=== PATIENT | female | born 1955 | race Caucasian/White ===

== ENCOUNTER 2023-12-15 00:55 | Inpatient (IN) | payer MEDICARE, SELFPAY ==
[2023-12-14 21:38] VITALS: BP 139/51; BMI 29.6
[2023-12-14 21:39] VITALS: BP 139/51
[2023-12-14 21:57] LABS: % Basophils 0.5 % (0-2); % Eosinophils 2.1 % (0-6); % Immature Granulocytes 0.2 % (0-0.5); % Lymphocytes 47.6 % (20.5-51.1); % Monocytes 6.7 % (1.7-9.3); % Neutrophils 42.9 % (42.2-75.2); Absolute Eosinophils 0.1 10^3/uL (0-0.7); Absolute Lymphocytes 2.1 10^3/uL (1.2-3.4); Absolute Monocytes 0.3 10^3/uL (0.1-0.6); Absolute Neutrophils 1.9 10^3/uL (1.4-6.5); Hematocrit 24.4 % (37.0-47.0); Hemoglobin 8.9 g/dL (12.0-16.0); Mean Corp Hgb Conc. 36.5 g/dL (33.0-37.0); Mean Corpuscular Hgb 30.7 pg (27.0-31.0); Mean Corpuscular Volume 84.1 fL (81.0-99.0); Mean Platelet Volume 8.9 fL (7.4-10.4); Nucleated Red Blood Cells % 0 %; Platelet Count 248 10^3/uL (130-400); Red Cell Dist. Width 12.5 % (11.5-14.5); White Blood Cell Count 4.3 10^3/uL (4.8-10.8)
[2023-12-14 22:00] VITALS: BP 129/58
[2023-12-14 22:19] LABS: ALT (SGPT) 15 U/L (0-35); AST (SGOT) 26 U/L (14-36); Albumin 4.1 g/dl (3.5-5.0); Alkaline Phosphatase 56 U/L (38-126); Blood Urea Nitrogen 22 mg/dl (7-17); Calcium 9.2 mg/dl (8.4-10.2); Carbon Dioxide 17 mmol/L (22-30); Chloride 98 mmol/L (98-107); Estimated Creatinine Clearance 35 ml/min; Glucose 131 mg/dl (70-99); Potassium 4.5 mmol/L (3.5-5.1); Sodium 127 mmol/L (135-145); Total Bilirubin 0.3 mg/dl (0.2-1.3); Total Protein 6.6 g/dl (6.3-8.2); eGFR 40.98
--- NOTE | 2023-12-14 22:32 | ED.GENMED ---
History of Present Illness
General
Chief Complaint: Weakness
Source: patient and residential records
Exam Limitations: clinical condition (somnulent)
Time Seen by Provider: 12/14/23 22:17
Nursing documentation reviewed up to this point in time: agreed with
History of Present Illness
History of Present Illness:
This a somnolent 68-year-old female from [facility] that presents with increased weakness and fatigue. They noted that her color looks more pale. Patient just arrived at the facility on 8 . She has a history of gastritis. Patient denies any
known black or bloody stools. Patient is on iron for chronic anemia.
Vital signs are stable. Patient not hypoxic
Nursing note reviewed. I agree with nursing documentation up to this point in time.
Home Meds and allergies reviewed.
NUMBER AND COMPLEXITY OF PROBLEMS ADDRESSED AT THE ENCOUNTER
� Chronic conditions affecting care: Chronic anemia, GI bleeds, hypertension, hyperlipidemia
� Acute Exacerbation and/or Progression of Chronic Illness: Anemia
� Differential Diagnosis includes: Dehydration, UTI, acute anemia
AMOUNT AND/OR COMPLEXITY OF DATA TO BE REVIEWED AND ANALYZED
I performed an independent evaluation of the following and my interpretation is:
EKG: EKG shows normal sinus rhythm rate 88 with normal intervals, normal axis. No evidence of acute ischemia present.
CT:
X-rays:
Ultrasound:
Laboratory Studies: Hemoglobin is 8.9. Down from 10.2 on 06/30/2021
Other:
Review of other/old records: Transfer forms from residential reviewed.
Clinical information was obtained by an independent historian:
Prescriptions/Medications Considered but not given:
Further testing considered but not performed:
RISK OF COMPLICATIONS AND/OR MORBIDITY OR MORTALITY OF PATIENT MANAGEMENT
Social determinants of health affecting care: Good Social Support, lives in residential.
Discussion with other providers: Hospitalist for admission.
Escalation of care including admission/observation vs risk of discharge considered:
CRITICAL CARE NOTE:
Total Time (exclusive of procedures):
Update:
Past History
Past History
ED Past Medical History: HTN, Hypercholesterolemia and IDDM
Social History
Tobacco: Non-smoker
Alcohol: None
Personal: Single
Living: other (independent living at [facility])
Review of Systems
Review of Systems
Allergies reviewed?: Yes
Other source history: transfer record
All Other Systems: ROS reviewed and negative except as documented in HPI and ROS
Constitutional: Reports fatigue and sleep disturbance
EENT: Reports no symptoms
Respiratory: Reports no symptoms
Cardiac: Reports no symptoms
ABD/GI: Reports black stools
: Reports no symptoms
Musculoskeletal: Reports no symptoms
Skin: Reports no symptoms
Neurological: Reports no symptoms
Endocrine: Reports no symptoms
Hematologic/Lymphatic: Reports no symptoms
Psychiatric: Reports no symptoms
Phy Exam
General Physical Exam
General Presentation: mild distress
General age: appears stated age
General Skin: warm, dry and pale
General Habitus: elderly and frail
General Mental: other (Somnolent)
General Hydration: dry mucous membranes
ENT Exam
ENT Exam: EOMI, pharynx normal, neck supple and normocephalic
Eye Exam
Eye Exam: PERRL, cornea clear and conjunctiva normal
Cardiovascular Exam
Cardiovascular Exam: regular rate/rhythm, no edema, no murmur and normal peripheral pulses
Pulmonary Exam
Pulmonary Exam: lungs clear, no respiratory distress, no rales, no crackles, no rhonchi, no stridor, no wheezing and no cough
Gastrointestinal Exam
Gastrointestinal Exam: normal bowel sounds, non tender, no organomegaly, no pulsatile mass and no cva tenderness
Rectal Exam: other (Grade 1 sacral decub forming)
Stool: black (Patient is taking supplemental iron)
Guaiac Status: trace positive (Hemoccult is trace positive. Performed in the presence of female nurse)
Neurological Exam
Neurological Exam: alert, oriented x3, no motor deficits and speech normal
Musculoskeletal Exam
Musculoskeletal Exam: full ROM and no edema
Skin Exam
Skin Exam: normal color and warm/dry
Psychiatric Exam
Psychiatric Exam: labile
Course
Orders/Labs/Results
Orders:
Orders
12/14/23 21:37
Cardiac Monitoring- Treatment ONCE
12/14/23 21:50
CMP [Comprehensive Metabolic Panel] Urgent
Complete Blood Count/With Diff Urgent
12/14/23 21:51
EKG [Electrocardiogram (*1)] Urgent
Reason for Study: Fatigue / Weakness
EKG- Treatment ONCE
12/14/23 22:38
0.9% Sodium Chloride 1000 ml [Nss] 1,000 ml IV 500 mls/hr
12/14/23 22:51
Urinalysis Reflex To Culture Urgent
Date Specimen was Collected: 12/14/23
Time Specimen was Collected: 22:44
12/14/23 23:15
Type+Screen Urgent
BBK Wristband Number:
Abnormal Lab Results
12/14/23
21:50
WBC 4.3 L 10^3/uL
(4.8-10.8)
RBC 2.90 L 10^6/uL
(4.20-5.40)
Hgb 8.9 L g/dL
(12.0-16.0)
Hct 24.4 L %
(37.0-47.0)
Sodium 127 L mmol/L
(135-145)
Carbon Dioxide 17 L mmol/L
(22-30)
BUN 22 H mg/dl
(7-17)
Creatinine 1.4 H mg/dL
(0.6-1.0)
Glucose 131 H mg/dl
(70-99)
12/14/23 21:50
12/14/23 21:50
Vital Signs
Initial and Last Documented VS:
Initial Vital Signs
Temp Pulse Resp BP Pulse Ox
97.7 F 93 12 139/51 100
12/14/23 21:38 12/14/23 21:38 12/14/23 21:38 12/14/23 21:38 12/14/23 21:38
Last Documented Vital Signs
Temp Pulse Resp BP Pulse Ox
97.7 F 89 13 139/51 98
12/14/23 21:38 12/14/23 21:45 12/14/23 21:45 12/14/23 21:39 12/14/23 21:54
*Critical Care Note
Total Time (30-74mins, 75-104mins- exclusive of procedures): Not Applicable
ED Attending Note
-
Portions of this chart may have been created with voice recognition software.� Occasional wrong word or��sound alike� substitutions may have occurred due to the inherent limitations of voice recognition software.
Discharge Plan
Departure
Patient Disposition: Admit
Date of Disposition: 12/14/23
Time of Disposition: 23:38
Admit to: Telemetry
Presentation/result/management discussed w/ accepting MD/DO: Hospitalist
Condition: Good
Discharge Problem:
Generalized weakness, Acute hyponatremia, Acute renal insufficiency, Anemia, Acute GI bleeding
Prescriptions:
No Action
nifedipine 30 mg Tablet Extended Release 24hr
30 mg PO DAILY
hydralazine 10 mg Tablet
10 mg PO TID
polyethylene glycol 3350 [Miralax] 17 gram Powder In Packet
34 g PO HS
sennosides-docusate sodium [Senokot-S] 8.6-50 mg Tablet
1 tab-cap PO HS
aspirin 81 mg Tablet,Delayed Release (Dr/Ec)
81 mg PO MOWEFR
acetaminophen 500 mg Tablet
1,000 mg PO Q8HPRN PRN (Reason: mild pain/fever)
magnesium hydroxide [Milk of Magnesia] 400 mg/5 mL Suspension
30 ml PO DAILYPRN PRN (Reason: constipation)
pantoprazole 40 mg tablet,delayed release (DR/EC)
40 mg PO DAILY
ferrous sulfate 325 mg (65 mg iron) Tablet
325 mg PO BID
Fleet Enema 19-7 gram/118 mL Enema
118 ml OK [id number] PRN (Reason: constipation)
bisacodyl [Dulcolax (bisacodyl)] 5 mg Tablet,Delayed Release (Dr/Ec)
5 mg PO [id number] PRN (Reason: constipation)
gabapentin 100 mg Capsule
100 mg PO BID
gabapentin 100 mg Capsule
200 mg PO HS
metformin 500 mg Tablet Extended Release 24 Hr
1,000 mg PO BID
insulin lispro [Humalog KwikPen Insulin] 100 unit/mL Insulin Pen
2 - 14 sliding scale dose SC AC
Patient Comments:
12/14/2023: if 150-200= 2; 201-250= 4; 251-300= 6; 301-350= 8; 351-400= 10; 450-451= 14
ezetimibe 10 mg tablet
10 mg PO DAILY
brimonidine-timolol [Combigan] 0.2-0.5 % Drops
1 drp RIGHT EYE BID
cholecalciferol (vitamin D3) 1,250 mcg (50,000 unit) Tablet
1,250 mcg PO QMONTH
Mounjaro 5 mg/0.5 mL Pen Injector
5 mg SC MO
Benefiber (wheat dextrin)
2 tsp PO BID
Referrals:
Anna Jackson CRNP [Family Provider] -
Interventions
Interventions:
*Risk Screen - Suicide Last Done: 12/14/23 21:38
*General Assessment Last Done: 12/14/23 21:38
*Neglect/Abuse Screening Last Done: 12/14/23 21:38
ED- Fall Risk Assessment Last Done: 12/14/23 21:54
*ED COVID-19 Vaccine History Last Done: 12/14/23 21:38
ED- Cardiac Assessment Last Done: 12/14/23 21:54
ED- Neurological Assessment Last Done: 12/14/23 21:54
ED- Pulmonary Assessment Last Done: 12/14/23 21:54
Discharge Date and Time
Print Language: ITALIAN
[2023-12-14] MEDS: NSS 1000 IV (22:55)
[2023-12-14 23:00] VITALS: BP 140/59
[2023-12-14 23:12] LABS: Urine Albumin Negative (Neg - Trace); Urine Bilirubin Negative (Negative); Urine Character Clear (Clear); Urine Color Yellow; Urine Glucose Negative (Negative); Urine Ketone Negative (Negative); Urine Leukocyte Negative (Negative); Urine Nitrite Negative (Negative); Urine Occult Blood Negative (Negative); Urine Urobilinogen Negative (Neg - 1+)
[2023-12-15] VITALS (11 sets, daily range): BP systolic 109–165; BP diastolic 58–86; PULSE 87–121; BMI 28.3
--- NOTE | 2023-12-15 00:04 | HPS.HSE ---
Family Physician
-
Family Physician: Anna Jackson
Chief Complaint
-
weakness
History of Present Illness
68F recently admitted [facility] as of 12/10/23 on ASA, HX gastritis, HX IrDMT2, Neuropathy, chronic anemia on oral Fe therapy , HTN seen at ER for evaluation of weakness and fatigue. Facility noted pale complexion.
ROS:
Denied N/V
Denied any change of colored stool
Medical History
Past Medical History
Past Medical History: Reports HTN, Hypercholesterolemia and IDDM
Additional Past Medical History:
gastritis
Past Surgical History: Reports Other (NA )
Social History
Tobacco: Non-smoker
Alcohol: None
Personal: Single
Living: [facility] (indepedent living )
Family History
Family History: Not pertinent
Allergies / Home Medications
Allergies reflects when Allergies were last updated in [facility].
Home Medications with original date entered in [facility]
Allergy/Medication List:
Allergies
Allergy/AdvReac Type Severity Reaction Status Date / Time
simvastatin [From Zocor] Allergy Mild Unknown Verified 12/14/23 21:45
Home Medications
Benefiber (wheat dextrin) 2 tsp PO BID 12/14/23
acetaminophen 500 mg tablet 1,000 mg PO Q8HPRN PRN mild pain/fever 12/14/23
aspirin 81 mg tablet,delayed release 81 mg PO MOWEFR 12/14/23
bisacodyl 5 mg tablet,delayed release (Dulcolax (bisacodyl)) 5 mg PO [id number] PRN constipation 12/14/23
brimonidine 0.2 %-timolol 0.5 % eye drops (Combigan) 1 drp RIGHT EYE BID 12/14/23
cholecalciferol (vitamin D3) 1,250 mcg (50,000 unit) tablet 1,250 mcg PO QMONTH 12/14/23
ezetimibe 10 mg tablet 10 mg PO DAILY 12/14/23
ferrous sulfate 325 mg (65 mg iron) tablet 325 mg PO BID 12/14/23
gabapentin 100 mg capsule 100 mg PO BID 12/14/23
gabapentin 100 mg capsule 200 mg PO HS 12/14/23
hydralazine 10 mg tablet 10 mg PO TID 12/14/23
insulin lispro 100 unit/mL subcutaneous pen (Humalog KwikPen (U-100) Insulin) 2 - 14 sliding scale dose SC AC 12/14/23
magnesium hydroxide 400 mg/5 mL oral suspension (Milk of Magnesia) 30 ml PO DAILYPRN PRN constipation 12/14/23
metformin 500 mg tablet,extended release 24 hr 1,000 mg PO BID 12/14/23
nifedipine 30 mg tablet,extended release 24 hr 30 mg PO DAILY 12/14/23
pantoprazole 40 mg tablet,delayed release 40 mg PO DAILY 12/14/23
polyethylene glycol 3350 17 gram oral powder packet (Miralax) 34 g PO HS 12/14/23
sennosides 8.6 mg-docusate sodium 50 mg tablet (Senokot-S) 1 tab-cap PO HS 12/14/23
sodium phosphates 19 gram-7 gram/118 mL enema (Fleet Enema) 118 ml RI [id number] PRN constipation 12/14/23
tirzepatide 5 mg/0.5 mL subcutaneous pen injector (Mounjaro) 5 mg SC MO 12/14/23
Review of Systems
-
Constitutional: Reports Fatigue
EENT: Reports No Symptoms
Respiratory: Reports No Symptoms
Cardiac: Reports No Symptoms
Abdomen/GI: Denies Abdominal Pain
: Reports No Symptoms
Musculoskeletal: Reports No Symptoms
Skin: Reports No Symptoms
Neurological: Reports No Symptoms
Endocrine: Reports No Symptoms
Hematologic/Lymphatic: Reports No Symptoms
Psych: Reports No Symptoms
Physical Exam
Vital Signs
Vital Signs
Temp Pulse Resp BP Pulse Ox
97.7 F 89 13 139/51 98
12/14/23 21:38 12/14/23 21:45 12/14/23 21:45 12/14/23 21:39 12/14/23 21:54
Physical Exam
General: Well Developed, Well Nourished, No Apparent Distress and Other (pale complexion )
HEENT: NormoCephalic, Anicteric, Moist mucous membranes and Atraumatic
Respiratory: Clear
Cardiac: S1/S2 and Regular Rhythm; No Murmur or Rub
GI: Soft, Non Tender, Non Distended and Normal Bowel Sounds; No Organomegaly
Rectal: Hem Positive and Deferred by Provider
Musculoskeletal: No Clubbing, No Cyanosis and No Edema
Skin: No Rash
Neuro: Nonfocal/grossly intact
Laboratory Results
-
12/14/23 21:50
12/14/23 21:50
Laboratory Results
Total Bilirubin 0.3 mg/dl (0.2-1.3) 12/14/23 21:50
AST 26 U/L (14-36) 12/14/23 21:50
ALT 15 U/L (0-35) 12/14/23 21:50
Alkaline Phosphatase 56 U/L (38-126) 12/14/23 21:50
Data Reviewed
-
Lab Data: Labs Reviewed by me
Impression/Plan
-
Reviewed VS: hemodynamically stable
Data
WCC 4.3
Hgb 8.9 - was 10.2 ( 06/30/21)
Na 127
CO2 17
BUN 22
Cr 1.4 -was 0.8 on 06/30/21
eGFR 40
EKG report
NORMAL SINUS RHYTHM
INFERIOR INFARCT , AGE UNDETERMINED
ANTERIOR INFARCT , AGE UNDETERMINED
ABNORMAL ECG
NO PREVIOUS ECGS AVAILABLE
03/12/17 ECHO
Normal biventricular size and systolic function without regional wall motion
abnormality.
Focal aortic valve sclerosis without stenosis.
No prior study available for comparison.
No prior hospitalist admission:
ASSESSMENT & PLAN
Trace HoB POS stool acute GIB per ER attd
Worsening chronic anemia become symptomatic
Suspect ACBL anemia with generalized weakness
- Held ASA
- T & S
- Blood consented
- PPI gtt
- trend H & H
- GI consult
SULAIMAN suspect pre renal origin due to GIB loss
- IVF
- Trend Cr
Hyponatremia suspect hypovolemia
Normotensive
- Gentle IV NS and trend Na
- check Ur Na, Ur Osm
Essential HTN
- Held Nifedipine for now
- Observe BP
IrDMT2
- Held Metformin
- add ISS low
Diabetic neuropathy
- cont. LEAD APPLIER Gabapentin
DVT Px: SCD
Code: Full
IP TLM
[2023-12-15] MEDS: PROTONIX IV 40 MG IV (00:19)
[2023-12-15 00:50] LABS: Osmolality Urine 157 mOsm/kg (300-900)
[2023-12-15 01:07] LABS: Urine Sodium 23 mmol/L (30-90)
--- NOTE | 2023-12-15 02:30 | PTCARENOTE ---
Pt arrived to room 416-01. Pt AAOx3, VSS. Pt in no signs of acute distress, respirations regular. Pt oriented to room, call avelar placed within reach.
[2023-12-15 02:32] LABS: Glucose - Point of Care 247 mg/dl (70-99)
[2023-12-15] MEDS: PROTONIX 100 IV ×2 (02:44→11:41)
[2023-12-15 06:33] LABS: Glucose - Point of Care 179 mg/dl (70-99)
--- NOTE | 2023-12-15 06:59 | CON.GI ---
Addendum entered and electronically signed by Khadra Houston MD 12/15/23 12:06:
I saw and examined the patient.
The RUBBER STAMP DIE INSPECTOR or PA's note was reviewed and I agree with the note.
Comment: 68-year-old female with history of hypertension, high cholesterol, diabetes presenting from [facility] with fatigue, lethargy, noted to have a hemoglobin of 8.9 and heme positive stool without overt bleeding. Patient is a poor historian
but denies any GI complaints. Denies abdominal pain, nausea or vomiting. No heartburn or trouble swallowing. Reports constipation and takes MiraLAX with improvement in constipation. No blood in the stool or black stool that she reports. She did
report losing weight, cannot quantify but has been stable recently. No regular NSAID use. Denies any previous endoscopy or colonoscopy. Father with questionable history of rectal cancer. On review of records, there is reported history of
gastritis needing hospital admission but again not sure which hospital.
-Anemia and heme positive stool
Rule out esophagitis, gastritis, ulcer disease, colon polyp versus other.
Agree with checking iron studies, B12 and folate levels and also celiac panel.
Plan for upper endoscopy and colonoscopy tomorrow.
Monitor electrolytes and replete if needed.
Addendum entered and electronically signed by MOON Gonzalez 12/15/23 10:49:
reviewed with Dr. Houston with anemia and weakness plan for EGD/colon in AM. pt agreeable to proceed
Original Note:
Consultation
-
Date/Time Consultation Requested: 12/15/23209
Date/Time Consultation Performed: 12/15/23729
Requesting Provider: Miles Chand MD
Performing Provider: MOON Carter, Khadra Houston MD
Reason for Consultation: anemia
Medical History
Chief Complaint / HPI
Chief Complaint: weakness
History of Present Illness:
Pt is a 68yo with hx IDDM with neuropathy, HTN, hypercholesterolemia, murmur, cellulitis of toe with prior surgery and chronic anemia. Per SNF she is noted with recent admission with gastritis ? [facility]. She now presents with
weakness, lethargy and recent fall with hbg 8.9 with trace heme + stool black stool with iron use in ER and asked to evaluate. Prior hbg 10.2 in 2021. Pt admits to hx anemia with chronic oral iron use. She admits to some darker stools which is
chronic with iron use. She also admits to recent fall with weakness and some forgetfulness. She denies hx GI work up with EGD or colonoscopy in past. She is ASA 3 times per week but no other NSAID use.
She admits to hx constipation with Miralax use and wt loss over several years but denies dysphagia, GERD, nausea, vomiting, abdominal pain, diarrhea or visible blood or black in stools. She denies bruising with recent fall, urinary bleeding or
vaginal bleeding. Pt also noted with tachycardia after admission and Na 127, creat 1.4.
Past Medical History
Past Medical History: HTN, Hypercholesterolemia, IDDM (with diabetic neuropathy) and Other (cellulitis toe, gastritis, anemia , murmur, obesity )
Past Surgical History: Other (toe surgery at [facility])
Social History
Tobacco: Non-Smoker
Alcohol: None
Drug: None
Living: Prison
Employment: Retired
Family History
Family History: Other (mother with hx aneurysm father with hx cancer pt did not recall hx any GI cancers )
Allergies / Home Medications
Allergy/AdvReac Type Severity Reaction Status Date / Time
simvastatin [From Zocor] Allergy Mild Unknown Verified 12/14/23 21:45
�Medication �Instructions �Recorded
Benefiber (wheat dextrin) 2 tsp PO BID 12/14/23
acetaminophen 500 mg tablet 1,000 mg PO Q8HPRN PRN mild 12/14/23
pain/fever
aspirin 81 mg tablet,delayed 81 mg PO MOWEFR 12/14/23
release
bisacodyl 5 mg tablet,delayed 5 mg PO [id number] PRN constipation 12/14/23
release (Dulcolax (bisacodyl))
brimonidine 0.2 %-timolol 0.5 % 1 drp RIGHT EYE BID 12/14/23
eye drops (Combigan)
cholecalciferol (vitamin D3) 1,250 1,250 mcg PO QMONTH 12/14/23
mcg (50,000 unit) tablet
ezetimibe 10 mg tablet 10 mg PO DAILY 12/14/23
ferrous sulfate 325 mg (65 mg 325 mg PO BID 12/14/23
iron) tablet
gabapentin 100 mg capsule 100 mg PO BID 12/14/23
gabapentin 100 mg capsule 200 mg PO HS 12/14/23
hydralazine 10 mg tablet 10 mg PO TID 12/14/23
insulin lispro 100 unit/mL 2 - 14 sliding scale dose SC AC 12/14/23
subcutaneous pen (Humalog KwikPen
(U-100) Insulin)
magnesium hydroxide 400 mg/5 mL 30 ml PO DAILYPRN PRN constipation 12/14/23
oral suspension (Milk of Magnesia)
metformin 500 mg tablet,extended 1,000 mg PO BID 12/14/23
release 24 hr
nifedipine 30 mg tablet,extended 30 mg PO DAILY 12/14/23
release 24 hr
pantoprazole 40 mg tablet,delayed 40 mg PO DAILY 12/14/23
release
polyethylene glycol 3350 17 gram 34 g PO HS 12/14/23
oral powder packet (Miralax)
sennosides 8.6 mg-docusate sodium 1 tab-cap PO HS 12/14/23
50 mg tablet (Senokot-S)
sodium phosphates 19 gram-7 118 ml MD [id number] PRN constipation 12/14/23
gram/118 mL enema (Fleet Enema)
tirzepatide 5 mg/0.5 mL 5 mg SC MO 12/14/23
subcutaneous pen injector
(Mounjaro)
Review of Systems
-
Unable to obtain full review of systems at this time due to: Other (some forgetfulness to history )
History Source: Patient
Constitutional: Reports Weight Loss (over time )
EENT: Reports No Symptoms
Respiratory: Reports No Symptoms
Cardiac: Reports No Symptoms
Abdomen/GI: Reports Constipated and Other (darker stools with iron use )
: Reports No Symptoms
Musculoskeletal: Reports No Symptoms
Skin: Reports No Symptoms
Neurological: Reports Weakness
Endocrine: Reports No Symptoms
Hematologic/Lymphatic: Reports No Symptoms
Vital Signs
Temp Pulse Resp BP Pulse Ox
97.6 F 104 18 165/77 99
12/15/23 02:35 12/15/23 02:03 12/15/23 02:35 12/15/23 02:03 12/15/23 02:35
Physical Exam
Exam
General: Other (pale appearing )
HEENT: Normocephalic and Anicteric
Respiratory: Clear
Cardiac: Other (tachy)
GI: Soft, Non Tender and Non Distended
Rectal: Hem Positive (black heme + in ER with hx iron use )
Musculoskeletal: No Clubbing, No Cyanosis and Other (no bruising noted with recent fall )
Skin: Warm and Dry
Neuro: Awake, Alert and AO x 3
Psych: Calm
Results
WBC 4.3 10^3/uL (4.8-10.8) L 12/14/23 21:50
Hgb Cancelled 12/15/23 18:11
Hct Cancelled 12/15/23 18:11
MCV 84.1 fL (81.0-99.0) 12/14/23 21:50
Plt Count 248 10^3/uL (130-400) 12/14/23 21:50
Absolute Neuts (auto) 1.9 10^3/uL (1.4-6.5) 12/14/23 21:50
Sodium 127 mmol/L (135-145) L 12/14/23 21:50
Potassium 4.5 mmol/L (3.5-5.1) 12/14/23 21:50
Chloride 98 mmol/L (98-107) 12/14/23 21:50
Carbon Dioxide 17 mmol/L (22-30) L 12/14/23 21:50
BUN 22 mg/dl (7-17) H 12/14/23 21:50
Creatinine 1.4 mg/dL (0.6-1.0) H 12/14/23 21:50
Calcium 9.2 mg/dl (8.4-10.2) 12/14/23 21:50
Total Bilirubin 0.3 mg/dl (0.2-1.3) 12/14/23 21:50
AST 26 U/L (14-36) 12/14/23 21:50
ALT 15 U/L (0-35) 12/14/23 21:50
Alkaline Phosphatase 56 U/L (38-126) 12/14/23 21:50
Diagnostic Image Results:
Prior GI Procedures:
EGD: none
Colonoscopy: none
Assessment / Plan
-
Pt is a 68yo with hx IDDM with neuropathy, HTN, hypercholesterolemia, murmur cellulitis of toe with prior surgery and chronic anemia. Per notes from [facility] recent admission with gastritis at [facility]. She now presents with weakness,
lethargy, and recent fall with hbg 8.9 with trace heme + stool black stool with iron use in ER and asked to evaluate. Prior hbg 10.2 in 2021. Pt admits to hx anemia with chronic oral iron use. She admits to some darker stools which is chronic
with iron use. She also admits to recent fall with weakness and some forgetfulness. She denies hx GI work up with EGD or colonoscopy in past. She is ASA 3 times per week but no other NSAID use.
-weakness/lethargy
-normocytic anemia with hx chronic anemia
-recent gastritis
-trace heme + stool in ER
-tachycardia with ambulation
-hyponatremia
-increased creat on admission
-hx fall - no bruising noted
other medical problems:
-IDDM with neuropathy
-HTN
-hypercholesterolemia
-hx cellulitis toe with prior toe surgery
PLAN:
etiology of anemia related to chronic disease with chronic iron use, vs underlying GI issue with trace heme + stool in ER vs other
trend hbg -- AM hbg pending
add iron studies, B12, folate
cont PPI gtt with recent gastritis and anemia
discussed GI testing with EGD and colonoscopy-- pt unsure if she would want to proceed. She denies for me to call family or friend to review
she is noted with tachycardia with HR up to 130's with ambulation this am --work up per medical team for tachycardia though seems improved
ok for clear diet
will review with Dr. Houston for IP vs OP testing as no transfusion required
will try to obtain records with ? recent admission to [facility] with gastritis
-
-
Thank you for consultation and allowing me to participate in the patient's care. Please call the sap security consultant GI physician during the after hours with any questions or concerns.
--- NOTE | 2023-12-15 10:36 | W.PN.HOSP.TC ---
Today's Communication/Plan
-
see bold
Assessment / Plan
Assessment / Plan
Gen: NAD, Awake and alert
Eyes: EOMI, PERRLA, no scleral icterus.
Neck: supple.
CV: tachy, reg rhythm, +S1/S2, 2/6 systolic murmru
Resp: CTAB, no rales, wheezes, or rhonchi.
Abd: +BS, soft, NT, ND
Skin: No rashes.
Neuro: CN 2-12 intact, non-focal.
Psych: Normal mood and affect.
Acute blood loss anemia:
-HEME POS stool
-ASA on hold
-cont PPI gtt
-trend Hb
-GI following
-for EGD
SULAIMAN and hypovolemic hyponatremia:
-likely prerenal and due to acute GIB
-trend Na/Cr with IVFs
Other problems:
Essential HTN: Holding Hydralazine/Procardia
DM2 with diabetic neuropathy: SSI/accuchecks
FULL/SCDs
Anticipated Discharge: 24 - 48 hours
Subjective/Interval History
-
Date of Service: December 15, 2023
Denies CP/SOB.
Objective Data
-
Labs:
Laboratory Results
12/15/23 12/15/23 12/15/23
02:11 06:00 10:11
Hgb Cancelled Pending Cancelled
Hct Cancelled Pending Cancelled
PT Pending
INR Pending
Sodium Pending
Potassium Pending
Chloride Pending
Carbon Dioxide Pending
BUN Pending
Creatinine Pending
Glucose Pending
Calcium Pending
Total Bilirubin Pending
AST Pending
ALT Pending
Alkaline Phosphatase Pending
12/15/23 12/15/2324
14:00 18:11 22:00
Hgb Pending Cancelled Pending
Hct Pending Cancelled Pending
PT
INR
Sodium
Potassium
Chloride
Carbon Dioxide
BUN
Creatinine
Glucose
Calcium
Total Bilirubin
AST
ALT
Alkaline Phosphatase
Vital Signs:
Vital Signs
Temp Pulse Resp BP Pulse Ox
97.9 F 101 20 141/73 99
12/15/23 07:20 12/15/23 07:20 12/15/23 07:20 12/15/23 07:20 12/15/23 07:20
[2023-12-15 11:38] LABS: Hematocrit 25.2 % (37.0-47.0); Hemoglobin 9.2 g/dL (12.0-16.0)
[2023-12-15] MEDS: NOVOLOG FLEXPEN-LOW RESISTANCE 1 UNITS SC ×2 (11:41→19:07)
[2023-12-15] MEDS: COMBIGAN EYE DROPS 1 DROP RIGHT EYE ×2 (11:41→20:21)
[2023-12-15 11:46] LABS: INR 0.94; PT 12.6 Sec (11.4-14.6)
[2023-12-15 11:47] LABS: Glucose - Point of Care 217 mg/dl (70-99)
[2023-12-15 12:19] LABS: ALT (SGPT) 15 U/L (0-35); AST (SGOT) 23 U/L (14-36); Albumin 4.1 g/dl (3.5-5.0); Alkaline Phosphatase 67 U/L (38-126); Blood Urea Nitrogen 21 mg/dl (7-17); Calcium 9.4 mg/dl (8.4-10.2); Carbon Dioxide 18 mmol/L (22-30); Chloride 105 mmol/L (98-107); Estimated Creatinine Clearance 34 ml/min; Glucose 215 mg/dl (70-99); Iron 64 ug/dl (37-170); Potassium 4.7 mmol/L (3.5-5.1); Sodium 136 mmol/L (135-145); Total Bilirubin 0.3 mg/dl (0.2-1.3); Total Protein 6.5 g/dl (6.3-8.2); eGFR 40.98
[2023-12-15 12:33] LABS: Percent Saturation 30 % (20-50); Total Iron Binding Capacity 212 ug/dl (265-497)
[2023-12-15 13:06] LABS: Glycohemoglobin (HgbA1c) 6.2 % (4.0-5.6)
[2023-12-15] MEDS: NOVOLOG FLEXPEN-LOW RESISTANCE 2 UNITS SC (13:17)
[2023-12-15 13:23] LABS: Folate 13.8 ng/ml (2.76-20); Vitamin B12 469 pg/ml (239-931)
--- NOTE | 2023-12-15 13:30 | CM ---
Patient seen bedside, initial assessment completed. Patient resides at [facility]. Patient reports she has a cane and and walker for ambulation, has received home therapy in the past, denies SNF. Patient inquiring what Hospital she is
in, GEORGI explained patient is at [facility]. Patient PCP Anna Jackson, pharmacy [facility] in [place], confirms prescription coverage. CM received consult for advance directive, paperwork provided to patient.
CM spoke with Mignon ([phone]), [facility] Lead for [facility] at [facility]. Per Mignon, patient has been in and out of the hospital, most recently at [facility]. Per Mignon, patient is typically alert and oriented, recently has
been showing decreased responsiveness. Mignon reports patient is able to ambulate with a cane, transfers and toilets independently. Patient receives 100% assistance with medication management assistance with showers to keep patient on a schedule.
CM will continue to follow for all discharge planning needs.
Plan; return to [facility], watch for possible VN needs.
[2023-12-15] MEDS: MIRALAX 34 GRAMS PO (14:02)
[2023-12-15] MEDS: NSS 1000 IV (16:39)
[2023-12-15] MEDS: NULYTELY SOLUTION 4 LITERS PO (18:24)
[2023-12-15 18:46] LABS: Glucose - Point of Care 176 mg/dl (70-99)
[2023-12-15 20:37] LABS: Hematocrit 27.8 % (37.0-47.0); Hemoglobin 10.3 g/dL (12.0-16.0)
[2023-12-15 21:23] LABS: Glucose - Point of Care 157 mg/dl (70-99)
[2023-12-16] MEDS: PROTONIX 100 IV ×3 (00:06→23:02)
[2023-12-16 03:18] VITALS: BP 142/60
[2023-12-16 04:18] LABS: Hemoglobin 9.2 g/dL (12.0-16.0); Mean Corp Hgb Conc. 36.8 g/dL (33.0-37.0); Mean Corpuscular Hgb 30.1 pg (27.0-31.0); Mean Corpuscular Volume 81.7 fL (81.0-99.0); Mean Platelet Volume 8.7 fL (7.4-10.4); Platelet Count 278 10^3/uL (130-400); Red Blood Cell Count 3.06 10^6/uL (4.20-5.40); Red Cell Dist. Width 12.9 % (11.5-14.5); White Blood Cell Count 4.8 10^3/uL (4.8-10.8)
[2023-12-16 04:44] LABS: IgA 238 mg/dl (70-400)
[2023-12-16 07:00] VITALS: BP 181/98
--- NOTE | 2023-12-16 07:09 | W.PN.HOSP.TC ---
Today's Communication/Plan
-
see bold
Assessment / Plan
Assessment / Plan
Gen: remains NAD, Awake and alert
Eyes: EOMI, PERRLA, no scleral icterus.
Neck: supple.
CV: remains RRR, +S1/S2, 2/6 systolic murmur
Resp: CTAB, no rales, wheezes, or rhonchi.
Abd: +BS, soft, NT, ND
Skin: No rashes.
Neuro: CN 2-12 intact, non-focal.
Psych: Normal mood and affect.
Acute blood loss anemia:
-HEME POS stool
-ASA on hold
-cont PPI gtt
-Hb stable
-GI following
-for EGD/colonoscopy
SULAIMAN and hypovolemic hyponatremia:
-likely prerenal and due to acute GIB
-hyponatremia has resolved
-cont IVFs, trend Cr
Other problems:
Essential HTN: Holding Hydralazine/Procardia
DM2 with diabetic neuropathy: SSI/accuchecks
FULL/SCDs
Anticipated Discharge: 24 - 48 hours
Subjective/Interval History
-
Date of Service: December 16, 2023
Objective Data
-
Labs:
Laboratory Results
12/15/23 12/15/23 12/16/23
20:02 22:00 03:54
WBC 4.8
Hgb 10.3 L Cancelled 9.2 L
Hct 27.8 L Cancelled
Plt Count
12/16/23 12/16/23
03:54 03:54
WBC
Hgb Cancelled
Hct 25.0 L Cancelled
Plt Count 278
Vital Signs:
Vital Signs
Temp Pulse Resp BP Pulse Ox
97.9 F 92 18 142/60 99
12/16/23 03:18 12/16/23 03:18 12/16/23 03:18 12/16/23 03:18 12/16/23 03:18
I&O
12/15/23 12/16/23 12/17/23
06:59 06:59 06:59
Intake Total 750 / 750
Balance 750 / 750
[2023-12-16 09:21] LABS: Glucose - Point of Care 139 mg/dl (70-99)
[2023-12-16] MEDS: NOVOLOG FLEXPEN-LOW RESISTANCE SC (09:25)
[2023-12-16] MEDS: COMBIGAN EYE DROPS 1 DROP RIGHT EYE ×2 (09:26→20:08)
[2023-12-16] MEDS: NSS 1000 IV (10:38)
[2023-12-16] MEDS: GAVILAX 125 GM PO (10:51)
[2023-12-16 11:00] VITALS: BP 158/71
[2023-12-16 12:06] LABS: Glucose - Point of Care 222 mg/dl (70-99)
[2023-12-16] MEDS: NSS IV (13:05)
[2023-12-16] MEDS: NOVOLOG FLEXPEN-LOW RESISTANCE 2 UNITS SC (13:20)
--- NOTE | 2023-12-16 14:34 | CM ---
Patient seen bedside, reports no needs at this time. Patient for EGD/colonoscopy. CM will continue to follow for all discharge planning needs.
Plan; return to [facility] when stable.
[2023-12-16 15:00] VITALS: BP 171/96
--- NOTE | 2023-12-16 16:28 | W.PN.GI.CBS2 ---
Today's Communication / Plan
-
For EGD and colon tomorrow
Assessment / Plan
-
Pt is a 68yo with hx IDDM with neuropathy, HTN, hypercholesterolemia, murmur cellulitis of toe with prior surgery and chronic anemia. Per notes from SNF recent admission with gastritis at [facility]. She now presents with weakness,
lethargy, and recent fall with hbg 8.9 with trace heme + stool black stool with iron use in ER and asked to evaluate. Prior hbg 10.2 in 2021. Pt admits to hx anemia with chronic oral iron use. She admits to some darker stools which is chronic
with iron use. She also admits to recent fall with weakness and some forgetfulness. She denies hx GI work up with EGD or colonoscopy in past. She is ASA 3 times per week but no other NSAID use.
-weakness/lethargy
-normocytic anemia with hx chronic anemia
-recent gastritis
-trace heme + stool in ER
-tachycardia with ambulation
-hyponatremia
-increased creat on admission
-hx fall - no bruising noted
other medical problems:
-IDDM with neuropathy
-HTN
-hypercholesterolemia
-hx cellulitis toe with prior toe surgery
PLAN:
etiology of anemia related to chronic disease with chronic iron use, vs underlying GI issue with trace heme + stool in ER vs other
Supposed to get upper endoscopy and colonoscopy today but prep was not clear and procedure postponed to tomorrow.
Giving more MiraLAX prep this evening.
Protonix 40 mg IV twice daily with recent gastritis and anemia
Subjective
Subjective
Date of Service: December 16, 2023
Patient without any complaints
Objective
Data Reviewed
Laboratory Data:
Laboratory Results
12/16/23 03:54
12/15/23 11:25
Laboratory Results
PT 12.6 Sec (11.4-14.6) 12/15/23 11:25
INR 0.94 12/15/23 11:25
Total Bilirubin 0.3 mg/dl (0.2-1.3) 12/15/23 11:25
AST 23 U/L (14-36) 12/15/23 11:25
ALT 15 U/L (0-35) 12/15/23 11:25
Alkaline Phosphatase 67 U/L (38-126) 12/15/23 11:25
Vital Signs and I&O:
Vital Signs
Temp Pulse Resp BP Pulse Ox
97.9 F 88 18 171/96 100
12/16/23 15:00 12/16/23 15:00 12/16/23 15:00 12/16/23 15:00 12/16/23 15:00
I&O
12/15/23 12/16/23 12/17/23
06:59 06:59 06:59
Intake Total 750 / 750
Balance 750 / 750
Physical Exam
Physical Exam
GI: Soft, Non Distended and Non Tender
[2023-12-16 17:23] LABS: Glucose - Point of Care 150 mg/dl (70-99)
[2023-12-16] MEDS: NOVOLOG FLEXPEN-LOW RESISTANCE 1 UNITS SC (17:27)
[2023-12-16] MEDS: GAVILAX 238 GM PO (17:28)
[2023-12-16 19:41] VITALS: BP 183/88
[2023-12-16 21:09] LABS: Glucose - Point of Care 257 mg/dl (70-99)
[2023-12-16 23:02] VITALS: BP 125/56
[2023-12-17] VITALS (8 sets, daily range): BP systolic 142–173; BP diastolic 64–92
[2023-12-17] MEDS: NSS 1000 IV (03:10)
[2023-12-17 06:22] LABS: Glucose - Point of Care 160 mg/dl (70-99)
[2023-12-17] MEDS: NOVOLOG FLEXPEN-LOW RESISTANCE 1 UNITS SC ×2 (06:23→14:07)
--- NOTE | 2023-12-17 06:42 | PTCARENOTE ---
Pt's stool is still liquid but light brown, not clear. Pt drank half of Miralax bowel prep and is refusing to drink any more. House MOLASSES PREPARER Janet Marquez notified, order for 1x tap water enema ordered. Pt educated by this RN on the use of the enema to
eliminate stool left in her rectum; pt is refusing and stated 'I don't think it helped before. No, sorry, I don't want that.' Will pass along to day shift RN.
[2023-12-17] MEDS: COMBIGAN EYE DROPS 1 DROP RIGHT EYE ×2 (08:31→20:11)
[2023-12-17 09:28] LABS: Hemoglobin 9.2 g/dL (12.0-16.0); Mean Corp Hgb Conc. 35.4 g/dL (33.0-37.0); Mean Corpuscular Hgb 29.5 pg (27.0-31.0); Mean Corpuscular Volume 83.3 fL (81.0-99.0); Mean Platelet Volume 8.7 fL (7.4-10.4); Platelet Count 305 10^3/uL (130-400); Red Blood Cell Count 3.12 10^6/uL (4.20-5.40); White Blood Cell Count 4.1 10^3/uL (4.8-10.8)
[2023-12-17 10:06] LABS: Blood Urea Nitrogen 10 mg/dl (7-17); Carbon Dioxide 24 mmol/L (22-30); Chloride 107 mmol/L (98-107); Estimated Creatinine Clearance 40 ml/min; Glucose 137 mg/dl (70-99); Potassium 3.8 mmol/L (3.5-5.1); Sodium 138 mmol/L (135-145); eGFR 49.31
--- NOTE | 2023-12-17 10:51 | W.PN.HOSP.TC ---
Today's Communication/Plan
-
see bold
Assessment / Plan
Assessment / Plan
Gen: continues to remain NAD, Awake and alert
Eyes: EOMI, PERRLA, no scleral icterus.
Neck: supple.
CV: continues to remain RRR, +S1/S2, 2/6 systolic murmur
Resp: CTAB anteriorly, no rales, wheezes, or rhonchi.
Abd: +BS, soft, NT, ND
Skin: No rashes.
Neuro: CN 2-12 intact, non-focal.
Psych: Normal mood and affect.
Acute blood loss anemia:
-HEME POS stool
-ASA on hold
-cont PPI gtt
-Hb stable
-GI following
-for EGD/colonoscopy
SULAIMAN and hypovolemic hyponatremia:
-likely prerenal and due to acute GIB
-hyponatremia has resolved
-cont IVFs, Cr improving
Other problems:
Essential HTN: Holding Hydralazine/Procardia
DM2 with diabetic neuropathy: SSI/accuchecks
FULL/SCDs
Anticipated Discharge: 24 - 48 hours
Subjective/Interval History
-
Date of Service: December 17, 2023
No new complaints.
Objective Data
-
Labs:
Laboratory Results
12/17/23
08:54
WBC 4.1 L
Hgb 9.2 L
Hct 26.0 L
Plt Count 305
Sodium 138
Potassium 3.8
Chloride 107
Carbon Dioxide 24
BUN 10
Creatinine 1.2 H
Glucose 137 H
Calcium 9.0
Vital Signs:
Vital Signs
Temp Pulse Resp BP Pulse Ox
98.8 F 94 17 145/68 99
12/17/23 07:00 12/17/23 07:00 12/17/23 07:00 12/17/23 07:00 12/17/23 07:00
I&O
12/16/23 12/17/23 12/18/23
06:59 06:59 06:59
Intake Total 750 / 750 2820 / 2820
Balance 750 / 750 2820 / 2820
[2023-12-17] MEDS: PROTONIX 100 IV (11:00)
--- NOTE | 2023-12-17 12:46 | W.PN.UPDATE ---
Update Note
Progress Note Update
If has any active bleeding or further drop in HB then will need Op Capsule endoscopy vs DBE, f/u as OP will s/o and will be available as needed
[2023-12-17 13:36] LABS: Glucose - Point of Care 162 mg/dl (70-99)
[2023-12-17] MEDS: NSS IV (14:50)
--- NOTE | 2023-12-17 14:54 | CM ---
Addendum entered by Jennifer Gonzalez 12/17/23 16:33:
Spoke with Roya from [facility], will need PT/OT faxed to [phone] to ensure can accept patient back.
[facility]
Report: [phone]

Original Note:
CM reviewed chart, patient for colonoscopy today. TT Hospitalist for PT/OT order. CM placed call to Mignon, from [facility] at [facility], per rig welder, Mignon not in today, transferred to Nurse Processor Grain, Roya, unable to
leave VM. CM will continue to follow for all discharge planning needs.
Please notify Mignon (Silverware Supervisor for [facility]) /Roya (Nurse Processor [employer]rain) ([phone]), at [facility] when patient stable for discharge, watch for VN needs.
[2023-12-17 16:54] LABS: Glucose - Point of Care 142 mg/dl (70-99)
[2023-12-17] MEDS: NOVOLOG FLEXPEN-LOW RESISTANCE SC (17:25)
[2023-12-18 00:18] LABS: Glucose - Point of Care 147 mg/dl (70-99)
[2023-12-18 06:53] LABS: Glucose - Point of Care 138 mg/dl (70-99)
[2023-12-18 07:18] VITALS: BP 179/87
[2023-12-18 08:24] LABS: Endomysial IgA Antibody Titer <1:10 (<1:10)
[2023-12-18] MEDS: NOVOLOG FLEXPEN-LOW RESISTANCE SC (08:30)
[2023-12-18 09:00] VITALS: BP 142/77; PULSE 110
[2023-12-18 09:10] VITALS: BP 142/77; PULSE 110
[2023-12-18] MEDS: COMBIGAN EYE DROPS 1 DROP RIGHT EYE (09:46)
--- NOTE | 2023-12-18 10:05 | W.PN.HOSP.TC ---
Today's Communication/Plan
-
awaiting AM labs
Assessment / Plan
Assessment / Plan
Gen: NAD, Awake and alert
Eyes: remains EOMI, PERRLA, no scleral icterus.
Neck: supple.
CV: RRR, +S1/S2, 2/6 systolic murmur
Resp: remains CTAB anteriorly, no rales, wheezes, or rhonchi.
Abd: +BS, soft, NT, ND
Skin: No rashes.
Neuro: remains CN 2-12 intact, non-focal.
Psych: Normal mood and affect.
EGD: Normal esophagus. Normal stomach. A single non-bleeding angioectasia in the duodenum. Biopsies were taken with a cold forceps for evaluation of celiac disease.
Colonoscopy: The entire examined colon is normal. (there was some stool coating parts of the colon small/flat lesions could be missed). No specimens collected.
Acute blood loss anemia:
-HEME POS stool on admission
-ASA on hold
-was on PPI gtt, now off
-EGD/colon unremarkable as above, may need capsule endoscopy in future
SULAIMAN and hypovolemic hyponatremia:
-likely prerenal and due to acute GIB
-hyponatremia has resolved
-cont IVFs, Cr improving
Other problems:
Essential HTN: restart Hydralazine/Procardia
DM2 with diabetic neuropathy: SSI/accuchecks
FULL/SCDs
Anticipated Discharge: Within 24 hours
Subjective/Interval History
-
Date of Service: December 18, 2023
No new complaints. Denies CP/SOB/melena/hematochezia.
Objective Data
-
Vital Signs:
Vital Signs
Temp Pulse Resp BP Pulse Ox
98.2 F 96 16 179/87 99
12/18/23 07:18 12/18/23 07:18 12/18/23 07:18 12/18/23 07:18 12/18/23 07:18
I&O
12/17/23 12/18/23 12/19/23
06:59 06:59 06:59
Intake Total 2820 / 2820 600 / 600
Balance 2820 / 2820 600 / 600
[2023-12-18] MEDS: PROCARDIA XL (EXTENDED RELEASE) 30 MG PO (11:15)
[2023-12-18 12:04] LABS: Glucose - Point of Care 214 mg/dl (70-99)
[2023-12-18 12:37] LABS: Hematocrit 26.2 % (37.0-47.0); Hemoglobin 9.7 g/dL (12.0-16.0); Mean Corpuscular Hgb 30.3 pg (27.0-31.0); Mean Corpuscular Volume 81.9 fL (81.0-99.0); Mean Platelet Volume 8.8 fL (7.4-10.4); Platelet Count 325 10^3/uL (130-400); Red Cell Dist. Width 12.6 % (11.5-14.5); White Blood Cell Count 3.8 10^3/uL (4.8-10.8)
[2023-12-18 13:04] LABS: Blood Urea Nitrogen 9 mg/dl (7-17); Calcium 9.5 mg/dl (8.4-10.2); Carbon Dioxide 21 mmol/L (22-30); Chloride 102 mmol/L (98-107); Estimated Creatinine Clearance 34 ml/min; Glucose 218 mg/dl (70-99); Potassium 3.6 mmol/L (3.5-5.1); Sodium 135 mmol/L (135-145); eGFR 40.98
--- NOTE | 2023-12-18 13:47 | CM ---
Addendum entered by Irina Cheung 12/18/23 14:27:
Ambulance scheduled for 1630 worm picker
Original Note:
Plan: Discharge to [facility] via ambulance today
Report # [phone]
--- NOTE | 2023-12-18 13:47 | W.DCSUMMARY ---
Discharge Summary
Discharge Data
Date of Admission: 12/15/23
Date of Discharge: 12/18/23
-
Pending Results: Yes
Additional Pending Results:
Random small intestine biopsy results
Hospital Course
Primary diagnoses:
Acute blood loss anemia due to gastrointestinal bleeding
Hypovolemic hyponatremia
Secondary diagnoses:
Essential hypertension
Type 2 diabetes mellitus with diabetic neuropathy
Consults:
Gastroenterology
Imaging:
EGD: Normal esophagus. Normal stomach. A single non-bleeding angioectasia in the duodenum. Biopsies were taken with a cold forceps for evaluation of celiac disease.
Colonoscopy: The entire examined colon is normal. (there was some stool coating parts of the colon small/flat lesions could be missed). No specimens collected.
60-year-old female who presented with chief complaint of weakness as outlined in the H&P done on admission. Hospital course by problem list:
Acute blood loss anemia: The patient's hemoglobin was 8.9 on admission. She had heme positive stool on admission. Her aspirin was held. She was placed on a Protonix drip and supported with IV fluids. It took her a while to prep for colonoscopy.
EGD/colonoscopy unremarkable as above. She may need a capsule endoscopy in future. Patient's hemoglobin was stable on discharge.
Hypovolemic hyponatremia: This was likely prerenal and due to acute GIB. The patient's hyponatremia resolved with IV fluids. Initially it was thought the patient may have had acute kidney injury. Acute kidney injury was ruled out as her
creatinine remained stable and IV fluids. I suspect that her baseline creatinine is 1.2-1.4.
Discharge Plan
-
Patient Disposition: Assisted/SNF
Discharge Diagnosis/Procedures: Acute blood loss anemia due to gastrointestinal bleeding
Condition: Good
Diet: Diabetic, Carb Controlled
Activity: As tolerated
Driving Restrictions: No driving
Bathing Restrictions: None
Blood Work: BMP and CBC in 1 week, prescription from PCP
Activity Restrictions/Additional Instructions:
Should your creatinine go above 1.5 he will need to discuss stopping metformin and replacing it with another antihyperglycemic agent with your primary care physician
Referrals:
Davi aMdrid V., [Active] - (CKD)
Anna Jackson CRNP [Family Provider] - in less than 1 week
Prescriptions:
Continued
nifedipine 30 mg Tablet Extended Release 24hr
30 mg PO DAILY
hydralazine 10 mg Tablet
10 mg PO TID
polyethylene glycol 3350 [Miralax] 17 gram Powder In Packet
34 g PO HS
sennosides-docusate sodium [Senokot-S] 8.6-50 mg Tablet
1 tab-cap PO HS
aspirin 81 mg Tablet,Delayed Release (Dr/Ec)
81 mg PO MOWEFR
acetaminophen 500 mg Tablet
1,000 mg PO Q8HPRN PRN (Reason: mild pain/fever)
magnesium hydroxide [Milk of Magnesia] 400 mg/5 mL Suspension
30 ml PO DAILYPRN PRN (Reason: constipation)
pantoprazole 40 mg tablet,delayed release (DR/EC)
40 mg PO DAILY
ferrous sulfate 325 mg (65 mg iron) Tablet
325 mg PO BID
Fleet Enema 19-7 gram/118 mL Enema
118 ml AL [id number] PRN (Reason: constipation)
bisacodyl [Dulcolax (bisacodyl)] 5 mg Tablet,Delayed Release (Dr/Ec)
5 mg PO [id number] PRN (Reason: constipation)
gabapentin 100 mg Capsule
100 mg PO BID
gabapentin 100 mg Capsule
200 mg PO HS
metformin 500 mg Tablet Extended Release 24 Hr
1,000 mg PO BID
insulin lispro [Humalog KwikPen Insulin] 100 unit/mL Insulin Pen
2 - 14 sliding scale dose SC AC
Patient Comments:
12/14/2023: if 150-200= 2; 201-250= 4; 251-300= 6; 301-350= 8; 351-400= 10; 450-451= 14
ezetimibe 10 mg tablet
10 mg PO DAILY
brimonidine-timolol [Combigan] 0.2-0.5 % Drops
1 drp RIGHT EYE BID
cholecalciferol (vitamin D3) 1,250 mcg (50,000 unit) Tablet
1,250 mcg PO QMONTH
Mounjaro 5 mg/0.5 mL Pen Injector
5 mg SC MO
Benefiber (wheat dextrin)
2 tsp PO BID
Discharge Orders:
Discharge Patient (As Directed); Ordered 12/18/23
Ordered By: Marcos Cesar
Discharge Date and Time
Print Language: CZECH
[2023-12-18] MEDS: NOVOLOG FLEXPEN-LOW RESISTANCE 2 UNITS SC (13:57)
[2023-12-18 15:16] VITALS: BP 109/50
[2023-12-18] MEDS: APRESOLINE 10 MG PO (16:22)
== END 2023-12-18 16:40 | DRG 378 ==
LOC: 4 WEST ACU 00:55
PROVIDERS: Emergency Medicine; Internal Medicine Gastroenterology; Nurse Practitioner Adult Health; ADMITTING PHYSICIAN Internal Medicine; ATTENDING PHYSICIAN Internal Medicine; CONSULT PHYSICIAN Internal Medicine Gastroenterology; EMERGENCY PHYSICIAN Student in an Organized Health Care Education/Training Program; FAMILY PHYSICIAN Nurse Practitioner Adult Health
PROC: 0DJD8ZZ Inspection of Lower Intestinal Tract, Via Natural or Artificial Opening Endoscopic (ICD-10-PCS; 2023-12-17)
PROC: 0DB98ZX Excision of Duodenum, Via Natural or Artificial Opening Endoscopic, Diagnostic (ICD-10-PCS; 2023-12-17)
DX: K31.811 Angiodysplasia of stomach and duodenum with bleeding (principal); D62 Acute posthemorrhagic anemia; E87.1 Hypo-osmolality and hyponatremia; N17.9 Acute kidney failure, unspecified; E66.9 Obesity, unspecified; D63.8 Anemia in other chronic diseases classified elsewhere; E86.1 Hypovolemia; R19.5 Other fecal abnormalities; I10 Essential (primary) hypertension; E11.40 Type 2 diabetes mellitus with diabetic neuropathy, unspecified; K59.00 Constipation, unspecified; E78.00 Pure hypercholesterolemia, unspecified; Z79.4 Long term (current) use of insulin; Z79.84 Long term (current) use of oral hypoglycemic drugs; Z79.85 Long-term (current) use of injectable non-insulin antidiabetic drugs; Z88.8 Allergy status to other drugs, medicaments and biological substances; Z68.28 Body mass index [BMI] 28.0-28.9, adult
CPT/HCPCS: 88305; 80048; 80053; 81003; 82607; 82728; 82746; 82784; 82962; 83036; 83516; 83540; 83550; 83935; 84300; 85014; 85018; 85025; 85027; 85610; 86231; 86850; 86900; 86901; 87070; 93005; 97162; 97165; 99285